=== PATIENT | male | born 1985 | race Caucasian/White ===

== ENCOUNTER 2024-06-20 08:53 | Emergency (ER) | payer MEDICAID ==
[~2024-06-20] VITALS: Ht 188 cm; Wt 91.8 kg
[2024-06-20] MEDS ORDERED: IBUP-1986 PO (10:33)
[2024-06-20 10:35] VITALS: BP 108/68; PULSE 70; RESP 16; TEMP 98.2; O2SAT 99
== END 2024-06-20 10:36 | disposition home or self-care (01) ==
LOC: ER 08:54
DX: G89.29 Other chronic pain (principal); M25.562 Pain in left knee; Z79.1 Long term (current) use of non-steroidal anti-inflammatories (NSAID)
CPT/HCPCS: 73564; 99283

== ENCOUNTER 2024-08-02 08:56 | Emergency (ER) | payer MEDICAID ==
[~2024-08-02] VITALS: Ht 185.4 cm; Wt 92.4 kg
[~2024-08-02 08:56] MED LIST: IBUP-1986 PO
[2024-08-02 09:10] VITALS: BP 177/116; PULSE 71; RESP 18; O2SAT 97
[2024-08-02 10:24] VITALS: TEMP 98.7
[2024-08-02] MEDS ORDERED: CEPH-585 PO (10:31)
[2024-08-02] MEDS ORDERED: NYST15CR37 TOP (10:32)
== END 2024-08-02 10:56 | disposition home or self-care (01) ==
LOC: ER 08:57
DX: L03.317 Cellulitis of buttock (principal); Z79.1 Long term (current) use of non-steroidal anti-inflammatories (NSAID); Z79.2 Long term (current) use of antibiotics; Z79.899 Other long term (current) drug therapy
CPT/HCPCS: 99283

== ENCOUNTER 2024-08-27 14:02 | Emergency (ER) | payer MEDICAID ==
[~2024-08-27] VITALS: Ht 185.4 cm; Wt 90.0 kg
[~2024-08-27 14:02] MED LIST changes: +CEPH-585 PO; +NYST15CR37 TOP
[2024-08-27 14:46] LABS: BASOPHILS % (AUTO) 0.3 % (0-1); EOSINOPHILS # (AUTO) 0.1 X10'3 (0-0.9); EOSINOPHILS % (AUTO) 0.8 % (0-6); HEMATOCRIT 44.4 % (42.0-52.0); HEMOGLOBIN 14.8 g/dl (14.0-17.9); LYMPHOCYTES # (AUTO) 0.7 X10'3 (1.1-4.8); LYMPHOCYTES % (AUTO) 9.4 % (21-51); MEAN CORPUSCULAR HEMOGLOBIN 29.2 PG (27.0-31.0); MEAN CORPUSCULAR HGB CONC 33.3 g/dL (33.0-36.5); MEAN CORPUSCULAR VOLUME 87.6 FL (78-98); MEAN PLATELET VOLUME 8.7 FL (7.4-10.4); MONOCYTES # (AUTO) 0.6 X10'3 (0-0.9); MONOCYTES % (AUTO) 7.8 % (2-12); NEUTROPHILS # (AUTO) 6.1 X10'3 (1.8-7.7); NEUTROPHILS % (AUTO) 81.7 % (42-75); PLATELET COUNT 187 X10'3 (140-440); RED BLOOD COUNT 5.07 X10'6 (4.70-6.10); RED CELL DISTRIBUTION WIDTH 13.8 % (11.5-14.5); WHITE BLOOD COUNT 7.5 X10'3 (4.5-11.0)
[2024-08-27 15:08] LABS: ALANINE AMINOTRANSFERASE 33 U/L (12-78); ALBUMIN/GLOBULIN RATIO 1.1 (1.1-1.5); ALKALINE PHOSPHATASE 87 IU/L (46-116); ANION GAP 13 (8-16); ASPARTATE AMINO TRANSFERASE 17 U/L (10-37); BILIRUBIN,TOTAL 0.7 MG/DL (0.1-1.0); BLOOD UREA NITROGEN 16 MG/DL (7-18); BUN/CREATININE RATIO 11.9 (10.0-20.0); CALCIUM 9.4 MG/DL (8.5-10.1); CHLORIDE 102 MMOL/L (99-107); CREATININE 1.35 MG/DL (0.60-1.10); GLUCOSE 113 MG/DL (70-104); LIPASE 47 U/L (16-77); POTASSIUM 3.7 MMOL/L (3.5-5.1); SODIUM 137 MMOL/L (135-145); TOTAL CARBON DIOXIDE 22.4 MMOL/L (24-32); TOTAL PROTEIN 7.8 G/DL (6.4-8.2); eCRCL 83 ML/MIN; eGFR 59 ML/MIN
[2024-08-27] MEDS: ondansetron 4mg rapidly disintigrating tab PO ONE (19:11)
[2024-08-27] MEDS ORDERED: ONDA-245 PO (19:12)
[2024-08-27] MEDS ORDERED: NIRM1TAB9 PO (19:12)
[2024-08-27] MEDS ORDERED: IBUP-862 PO (19:12)
[2024-08-27] MEDS: ibuprofen tablet 400 MG TABLET PO ONE (19:19)
[2024-08-27 19:29] VITALS: BP 115/70; PULSE 107; RESP 16; TEMP 102.1; O2SAT 100
== END 2024-08-27 19:35 | disposition home or self-care (01) ==
LOC: ER 14:03
DX: U07.1 COVID-19 (principal); R07.89 Other chest pain; Z79.1 Long term (current) use of non-steroidal anti-inflammatories (NSAID); Z79.2 Long term (current) use of antibiotics
CPT/HCPCS: 36415; 80053; 83690; 85025; 87502; 87503; 87811; 93005; 99284